=== PATIENT | female | born 2000 | race Hispanic/Latino ===

== ENCOUNTER 2021-07-07 15:12 | Outpatient (CLI) | payer OTHER ==
[2021-07-08 11:20] LABS: SARS-CoV-2 PCR by NAA DETECTED (NotDetected)
== END 2021-07-07 15:13 | disposition home or self-care (01) ==
LOC: CSHLAB 15:12
PROVIDERS: ATTEND Student in an Organized Health Care Education/Training Program
DX: U07.1 COVID-19 (principal)
CPT/HCPCS: U0003; U0005

== ENCOUNTER 2021-07-24 12:10 | Day surgery (SDC) | payer OTHER ==
[2021-07-24] MEDS ORDERED: Acetaminophen 500 MG TAB PO SCH (12:45)
[2021-07-24] MEDS ORDERED: hydrALAZINE 20 MG/ML VIAL SLOW IVP PRN (12:53)
[2021-07-24] MEDS ORDERED: Iron Sucrose Complex 500 MG in Sodium Chloride 0.9% 250 ML 250 ML IVPB SCH (13:15)
[2021-07-24 13:25] VITALS: BP 101/62; TEMP 97.9
== END 2021-07-24 18:10 | disposition home health service (06) ==
LOC: CSHLD/OP 12:10
PROVIDERS: ATTEND Emergency Medicine
DX: O99.013 Anemia complicating pregnancy, third trimester (principal); O36.5930 Maternal care for other known or suspected poor fetal growth, third trimester, not applicable or unspecified; Z3A.36 36 weeks gestation of pregnancy; Z79.899 Other long term (current) drug therapy; Z86.16 Personal history of COVID-19
CPT/HCPCS: J1756; J7050

== ENCOUNTER 2021-07-31 17:19 | Inpatient (IN) | payer OTHER ==
[2021-07-31] MEDS ORDERED: Carboprost 250 MCG/ML AMP IM PRN (18:06)
[2021-07-31] MEDS ORDERED: Lidocaine 1% (PF) 30 ML VIAL SC PRN (18:06)
[2021-07-31] MEDS ORDERED: Misoprostol 200 MCG TAB PR PRN (18:06)
[2021-07-31] MEDS ORDERED: Ondansetron PF 4 MG/2 ML Vial IVP PRN (18:06)
[2021-07-31] MEDS ORDERED: Methylergonovine 0.2 MG/ML VIAL IM PRN (18:06)
[2021-07-31] MEDS ORDERED: hydrALAZINE 20 MG/ML VIAL SLOW IVP PRN (18:06)
[2021-07-31] MEDS ORDERED: NS w/ Oxytocin 30 units 500 ML IV SCH ×2 (18:15)
[2021-07-31] MEDS ORDERED: Lactated Ringer's 1,000 ML IV SCH (18:15)
[2021-07-31 18:21] LABS: Hemoglobin 11.3 g/dL (12.0-15.5); Mean Corpuscular HGB CONC 31.6 g/dL (32.0-36.0); Mean Corpuscular Hemoglobin 26.2 pg (27.0-33.0); Mean Corpuscular Volume 82.9 fl (81.6-98.3); Mean Platelet Volume 12.2 fl (7.4-10.4); Platelet Count 205 10x3/uL (150-450); Red Blood Cell (RBC) Count 4.32 10x6/uL (3.90-5.03); White Blood Cell (WBC) Count 7.3 10x3/uL (3.5-10.5)
[2021-07-31] MEDS ORDERED: Misoprostol 100 MCG TAB ONE (18:26)
[2021-07-31] MEDS: Misoprostol 100 MCG TAB VAG SCH (18:33)
[2021-07-31 19:11] LABS: Hep B Surf Ag Non-Reactive S/CO (NonReactive); Syphilis Antibody Nonreactive (Nonreactive); Syphilis Antibody Index 0.02 S/CO (<1.00 Non-Reactive)
[2021-07-31 19:31] LABS: HBSAg Index 0.18 S/CO (0-0.99)
[2021-08-01] MEDS ORDERED: Ibuprofen 800 MG TAB PO SCH (01:00)
[2021-08-01 07:21] VITALS: BMI 30.8
[2021-08-01] MEDS: Misoprostol 100 MCG TAB VAG SCH ×3 (08:35→11:16)
[2021-08-01] MEDS ORDERED: Prenatal Vitamin 1 TAB PO SCH (09:00)
[2021-08-01] MEDS ORDERED: Fentanyl 2 mcg/Bup 0.1% Cadd 100 ML ONE (11:36)
[2021-08-01] MEDS ORDERED: ceFAZolin 2 GM/Dextrose 50 ML IVPB ONE (13:33)
[2021-08-01] MEDS ORDERED: Famotidine/PF 20 mg/2ml Vial ONE (13:34)
[2021-08-01] MEDS ORDERED: Bicitra 30 ML UDCUP PO PRN (13:44)
[2021-08-01] MEDS ORDERED: Famotidine/PF 20 mg/2ml Vial SLOW IVP PRN (13:44)
[2021-08-01] MEDS ORDERED: ceFAZolin 2 GM/Dextrose 50 ML 2 GM in Premix Bag 1 BAG IVPB SCH (13:45)
[2021-08-01] MEDS ORDERED: Oxytocin 10 UNITS/ML VIAL ONE ×2 (13:54→14:52)
[2021-08-01] MEDS ORDERED: Ondansetron PF 4 MG/2 ML Vial ONE (13:56)
[2021-08-01] MEDS ORDERED: Morphine PF 10 MG/10 ML VIAL ONE (14:55)
[2021-08-01] MEDS ORDERED: Methylergonovine 0.2 MG/ML VIAL ONE (14:59)
[2021-08-01] MEDS ORDERED: Ketorolac Tromethamine 30 MG/ML VIAL ONE (15:08)
[2021-08-01 15:14] LABS: RapidComm Collect By NURSE
[2021-08-01 15:15] LABS: RapidComm Collect By NURSE; pH (Cord, venous) 7.275 (7.250-7.350)
[2021-08-01] MEDS ORDERED: Lidocaine 2% MPF 10 ML AMP (For Epidural Use) ONE (15:43)
[2021-08-01] MEDS ORDERED: Naloxone HCl 0.4 mg/ml Vial IV PRN (16:05)
[2021-08-01] MEDS ORDERED: Promethazine HCl 25 MG/ML VIAL IM PRN ×2 (16:05)
[2021-08-01] MEDS ORDERED: Ondansetron HCl/PF 4 MG/2 ML Vial IVP PRN (16:05)
[2021-08-01] MEDS ORDERED: Naloxone HCl 0.4 mg/ml Vial IVP PRN ×4 (16:05)
[2021-08-01] MEDS ORDERED: ePHEDrine Sulfate 50 MG/10 ML VIAL SLOW IVP PRN (16:05)
[2021-08-01] MEDS ORDERED: Lactated Ringer's 500 ML IV PRN (16:05)
[2021-08-01] MEDS ORDERED: HYDROmorphone 2 MG/ML VIAL SLOW IVP PRN (16:05)
[2021-08-01] MEDS ORDERED: Acetaminophen 325 MG TAB PO PRN ×2 (16:05→18:34)
[2021-08-01] MEDS ORDERED: diphenhydrAMINE 50 MG/ML VIAL IVP PRN ×2 (16:05)
[2021-08-01] MEDS ORDERED: Ondansetron PF 4 MG/2 ML Vial IVP PRN ×2 (16:05)
[2021-08-01] MEDS ORDERED: Hydrocerin (Eucerin) Cream 120 gm Jar TOP PRN ×2 (16:05)
[2021-08-01] MEDS ORDERED: Fentanyl 100 MCG/2 ML VIAL SLOW IVP PRN (16:05)
[2021-08-01] MEDS ORDERED: Ketorolac Tromethamine 30 MG/ML VIAL IVP PRN (16:05)
[2021-08-01] MEDS ORDERED: Promethazine HCl 25 MG SUPP PR PRN (16:05)
[2021-08-01] MEDS ORDERED: Meperidine HCl/PF 25 MG/ML VIAL SLOW IVP PRN (16:05)
[2021-08-01] MEDS ORDERED: Fentanyl 2 mcg/Bupivacaine 0.1% Cassette 100 ML EPIDURAL SCH (16:15)
[2021-08-01] MEDS ORDERED: Ketorolac Tromethamine 30 MG/ML VIAL IVP SCH (16:15)
[2021-08-01] MEDS ORDERED: Communication Order-Pharmacy FS SCH ×2 (16:15)
[2021-08-01] MEDS ORDERED: Measles/Mumps/Rubella 10 MCG/0.5 ML VIAL SC ONE (18:34)
[2021-08-01] MEDS ORDERED: NS w/ Oxytocin 30 units 500 ML IV SCH (18:34)
[2021-08-01] MEDS ORDERED: Boostrix 0.5 ML (Tdap) VIAL IM ONE (18:34)
[2021-08-01] MEDS ORDERED: Simethicone Chewable 80 MG TAB PO PRN (18:34)
[2021-08-01] MEDS ORDERED: Bisacodyl 10 MG SUPP PR PRN (18:34)
[2021-08-01] MEDS ORDERED: Lanolin Ointment 7 GM TUBE TOP PRN (18:34)
[2021-08-02 05:54] LABS: Hemoglobin 10.4 g/dL (12.0-15.5); Mean Corpuscular HGB CONC 30.7 g/dL (32.0-36.0); Mean Corpuscular Hemoglobin 25.9 pg (27.0-33.0); Mean Corpuscular Volume 84.5 fl (81.6-98.3); Platelet Count 158 10x3/uL (150-450); RBC Distribution Width 23.5 % (11.5-14.5); Red Blood Cell (RBC) Count 4.01 10x6/uL (3.90-5.03); White Blood Cell (WBC) Count 7.8 10x3/uL (3.5-10.5)
[2021-08-02] MEDS: Prenatal Vitamin 1 TAB PO SCH (08:26)
[2021-08-02] MEDS: Docusate 100 MG CAP PO SCH ×3 (08:26→21:41)
[2021-08-02] MEDS: Ibuprofen 800 MG TAB PO SCH ×3 (08:28→17:20)
[2021-08-02] MEDS ORDERED: HYDROcodone/Acetaminophen 5/325 mg Tablet PO PRN (09:15)
[2021-08-03] MEDS: Ibuprofen 800 MG TAB PO SCH ×2 (00:15→08:36)
[2021-08-03 07:52] VITALS: TEMP 98.4
[2021-08-03] MEDS: Prenatal Vitamin 1 TAB PO SCH (08:34)
[2021-08-03] MEDS: Docusate 100 MG CAP PO SCH (08:34)
[2021-08-03 11:26] VITALS: BP 118/61
== END 2021-08-03 17:15 | disposition home or self-care (01) | DRG 788 ==
LOC: CSHLD 17:19 → CSHPP 08-01 18:20
PROVIDERS: ADMIT Family Medicine; ATTEND Family Medicine
PROC: 10D00Z1 Extraction of Products of Conception, Low, Open Approach (ICD-10-PCS; principal; 2021-08-01)
DX: O36.5930 Maternal care for other known or suspected poor fetal growth, third trimester, not applicable or unspecified (principal); O99.344 Other mental disorders complicating childbirth; F41.9 Anxiety disorder, unspecified; O99.02 Anemia complicating childbirth; D64.9 Anemia, unspecified; Z3A.37 37 weeks gestation of pregnancy; Z37.0 Single live birth; Z86.16 Personal history of COVID-19; O32.4XX0 Maternal care for high head at term, not applicable or unspecified; O76 Abnormality in fetal heart rate and rhythm complicating labor and delivery
CPT/HCPCS: 51702; 82805; 85027; 86780; 86850; 86900; 86901; 87340; 90707; J0690; J1885; J2210; J2274; J2405; J2550; J2590; S0028